=== PATIENT | female | born 1995 | race African-American/Black ===

== ENCOUNTER 2022-01-09 09:20 | Emergency (ER) | payer SELFPAY ==
[~2022-01-09] VITALS: Ht 160 cm; Wt 101.2 kg
[2022-01-09] MEDS ORDERED: AZITHROMYCIN250 MG PO (09:50)
[2022-01-09] MEDS ORDERED: PREDNISONE50 MG PO (09:50)
[2022-01-09] MEDS ORDERED: THERAFLU FLU &1 EAC1 PO (09:50)
[2022-01-09] MEDS ORDERED: VENTOLIN HFA18 GM INH (09:50)
== END 2022-01-09 10:14 | disposition home or self-care (01) ==
LOC: FSED 10:13
DX: R05.9 Cough, unspecified (principal); J06.9 Acute upper respiratory infection, unspecified; J40 Bronchitis, not specified as acute or chronic
CPT/HCPCS: 83518; 87400; 99282

== ENCOUNTER 2022-07-10 17:34 | Emergency (ER) | payer SELFPAY ==
[~2022-07-10] VITALS: Ht 157.5 cm; Wt 112.0 kg
[~2022-07-10 17:34] MED LIST: AZITHROMYCIN250 MG PO; PREDNISONE50 MG PO; THERAFLU FLU &1 EAC1 PO; VENTOLIN HFA18 GM INH
[2022-07-10 17:47] VITALS: O2SAT 99
[2022-07-10] MEDS ORDERED: IBUPROFEN200 MG PO (18:02)
[2022-07-10] MEDS ORDERED: TYLENOL325 MG PO (18:02)
== END 2022-07-10 18:30 | disposition home or self-care (01) ==
LOC: FSED 17:38
DX: M25.572 Pain in left ankle and joints of left foot (principal); M25.571 Pain in right ankle and joints of right foot; S93.492A Sprain of other ligament of left ankle, initial encounter; S93.491A Sprain of other ligament of right ankle, initial encounter; W01.0XXA Fall on same level from slipping, tripping and stumbling without subsequent striking against object, initial encounter; Y92.89 Other specified places as the place of occurrence of the external cause
CPT/HCPCS: 99283